=== PATIENT | female | born 1990 | race Caucasian/White ===

== ENCOUNTER 2022-06-06 09:43 | Outpatient (REF) | payer OTHER, SELFPAY ==
--- NOTE | ~2022-06-06 | XR_ITS ---
EXAMINATION: XR ANKLE, RIGHT CLINICAL INFORMATION: Right ankle sprain. COMPARISON: None TECHNIQUE: AP, lateral, and mortise views of the right ankle. FINDINGS: No acute fracture or dislocation. The ankle mortise is maintained. No joint space narrowing or marginal osteophytes. No osseous erosion. No abnormal soft tissue calcification. Mild circumferential soft tissue swelling. XR/XR ankle RT min 3V IMPRESSION: Mild circumferential soft tissue swelling without acute osseous abnormality.
== END 2022-06-06 09:44 | disposition home or self-care (01) ==
LOC: HO.HMGCX 09:43
PROVIDERS: Visit Provider Internal Medicine
DX: S93.401A Sprain of unspecified ligament of right ankle, initial encounter (principal)
CPT/HCPCS: 73610

== ENCOUNTER → 2023-02-24 14:59 | Outpatient (BNVA) | payer OTHER, SELFPAY | PROVIDERS: Visit Provider Physician Assistant Medical | DX: S63.502A Unspecified sprain of left wrist, initial encounter (principal); W18.30XA Fall on same level, unspecified, initial encounter; W50.1XXA Accidental kick by another person, initial encounter | CPT/HCPCS: 29125; 99203 ==

== ENCOUNTER → 2023-03-11 15:19 | Outpatient (BNVA) | payer OTHER, SELFPAY | PROVIDERS: Visit Provider Physician Assistant Medical | DX: S63.502A Unspecified sprain of left wrist, initial encounter (principal); X58.XXXA Exposure to other specified factors, initial encounter | CPT/HCPCS: 99213 ==

== ENCOUNTER 2023-03-26 10:30 | Outpatient (RCR) | payer OTHER, SELFPAY ==
--- NOTE | 2023-03-20 15:55 | MHC.OT.EP ---
[address] [phone] Occupational Therapy Plan of Care Patient Name: India Franco Date of Evaluation: 03/20/23 Diagnosis: Traumatic left wrist strain Pain Location: 3-8 Pain Score: 3 Pain Scale Used: Aggravating Factors: End of the day inc pain. Pulling off brace, brushing daughters hair Sharp pain with carrying with right hand Rotation Alleviating Factors: Wrist brace, ibuprofen , tylonal Ice Assessment: Pt is a 33 yo female 3 wks ,3 day s/p left wrist traumatic strain due to a FOOSH at work. Pt is wearing a pre olivia wrist splint and has been on light duty since the injury. 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 Pt reports a 72% limitation in daily activities due to pain and protection of left wrist Today she presents with decreased forearm rotation and decrease in strength with pain at ulnar wrist. 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 Thank you once again for your referral.
--- NOTE | 2023-04-04 14:43 | MHC.OT.DC ---
[address] [phone] F: [phone] Occupational Therapy Discharge Note Patient Name: India Colbert Provider: Kavya Dangelo Diagnosis: Traumatic left wrist strain Date of Evaluation: 03/20/23 Date of Discharge: 04/04/23 Treatments to Date: 2 Cancellations to Date: 0 No Shows to Date: 3 Discharge Status: Visit Non-compliance Discharge Summary: MS COLBERT REPORTED IMPROVEMENTS IN HER WRIST PAIN AND AROM AT HER LAST APPOINTMENT (03/26/23). HER MOTION WAS SLOW AND GUARDED. UNFORTUNATELY, Pt HAS HAD THREE NO-SHOWS. PHONE CALL PLACED AND Pt INFORMED SHE HAS BEEN DISCHARGED FROM OT SERVICES DUE TO THE CORE ATTENDANCE POLICY VIOLATION. Electronically Signed By: COURT VARGAS OTR/Julio Reviewed/agree with student documentation: N/A Therapist: Please Sign and return to therapist, thank you for your referral.
== END 2023-04-04 14:40 | disposition home or self-care (01) ==
LOC: HO.OT 10:30
PROVIDERS: PCP Internal Medicine; Visit Provider Physician Assistant Medical
DX: S66.912D Strain of unspecified muscle, fascia and tendon at wrist and hand level, left hand, subsequent encounter (principal)
CPT/HCPCS: 29125; 97110; 97165; 97760

== ENCOUNTER → 2023-04-03 14:58 | Outpatient (BNVA) | payer OTHER, SELFPAY | PROVIDERS: PCP Internal Medicine; Visit Provider Physician Assistant | DX: S63.502D Unspecified sprain of left wrist, subsequent encounter (principal); W18.30XD Fall on same level, unspecified, subsequent encounter | CPT/HCPCS: 99213 ==